=== PATIENT | male | born 1950 | race Asian ===

== ENCOUNTER 2021-05-11 19:04 | Emergency (ER) | payer SELFPAY ==
[~2021-05-11] VITALS: Ht 177.8 cm; Wt 74.5 kg
[2021-05-11] MEDS ORDERED: MUCI1TAB18 PO (19:17)
[2021-05-11] MEDS ORDERED: METF500T13 PO (20:20)
[2021-05-11] MEDS ORDERED: ISOS10TA3 PO (20:20)
[2021-05-11] MEDS ORDERED: ASPI325T57 PO (20:20)
[2021-05-11] MEDS ORDERED: ALLO100T PO (20:20)
[2021-05-11] MEDS ORDERED: BENZ200C70 PO (21:02)
[2021-05-11 21:29] VITALS: BP 125/64
== END 2021-05-11 21:36 | disposition home or self-care (01) ==
LOC: M ED 19:04
DX: J02.9 Acute pharyngitis, unspecified (principal); R05.9 Cough, unspecified; U07.1 COVID-19; E11.9 Type 2 diabetes mellitus without complications; E78.5 Hyperlipidemia, unspecified; Z79.899 Other long term (current) drug therapy; Z79.82 Long term (current) use of aspirin; Z79.84 Long term (current) use of oral hypoglycemic drugs

== ENCOUNTER 2025-01-23 19:28 | Emergency (ER) | payer MEDICAID, MEDICARE ==
[~2025-01-23] VITALS: Ht 172.7 cm; Wt 78.3 kg
[~2025-01-23 19:28] MED LIST: ALLO100T PO; ASPI325T57 PO; BENZ200C70 PO; ISOS10TA3 PO; METF500T13 PO; MUCI1TAB18 PO
[2025-01-23 20:39] LABS: KETONE, URINE AUTO RFX TRACE mg/dL (NEGATIVE); LEUKOCYTE ESTERASE UR AUTO RFX NEGATIVE (NEGATIVE); NITRITE, URINE AUTO RFX NEGATIVE (NEGATIVE); RBC, URINE AUTO RFX 17 /HPF (0-3); SQUAM EPITHELIAL CELL UR AURFX 0 /HPF (0-6); WBC, URINE AUTO RFX 0 /HPF (0-3)
[2025-01-23 20:56] LABS: BASO # 0.0 10^3/uL (0.0-0.2); BASO % 0.2 % (0.0-1.0); EOS # 0.0 10^3/uL (0.0-0.5); EOS % 0.2 % (0.0-3.0); LYMPH # 1.4 10^3/uL (1.5-5.0); LYMPH % 10.1 % (24.0-44.0); MONO # 1.3 10^3/uL (0.0-0.8); MONO % 9.6 % (2.0-8.0); NEUTROPHILS # 10.8 10^3/uL (1.5-8.5); NEUTROPHILS % 79.6 % (36.0-66.0); PLATELET COUNT, AUTOMATED 168 10^3/uL (150-450)
[2025-01-23 21:24] LABS: ALT/SGPT 499 U/L (7.0-40); AST/SGOT 283 U/L (<34); CALCIUM LEVEL 8.8 MG/DL (8.3-10.6); CARBON DIOXIDE LEVEL 25 MMOL/L (20-31); CHLORIDE LEVEL 104 MMOL/L (98-107); CREATININE FOR GFR 1.02 MG/DL (0.70-1.30); GLOMERULAR FILTRATION RATE 76.7 (>42); POTASSIUM SERUM 4.4 MMOL/L (3.5-5.1); SODIUM LEVEL 140 MMOL/L (136-145)
[2025-01-23] MEDS ORDERED: ISOVUE-370 76% 100 ML VIAL As Ordered ONE (23:08)
[2025-01-23] MEDS: ONDANSETRON 4MG 2ML VIAL IV ONE (23:09)
[2025-01-23] MEDS: NS (Normal Saline) 0.9% 1,000 ML IV ONE (23:09)
[2025-01-23 23:38] LABS: HEPATITIS C VIRUS ABY INDEX 0.02 INDEX (<0.8)
[2025-01-23 23:42] LABS: CPK CREATINE PHOSPHOKINASE 54 U/L (46-171)
[2025-01-24 01:26] LABS: C REACTIVE PROTEIN QUANTITATIV 9.14 MG/DL (<1.0)
[2025-01-24] MEDS: PIPERACILLIN/TAZOBACTAM SOD 3.375 GM in DEXTROSE 5% (D5W) ADV/MINI-BAG 50 ML IV SCH (01:58)
[2025-01-24 04:41] LABS: BASO # 0.0 10^3/uL (0.0-0.2); BASO % 0.2 % (0.0-1.0); EOS # 0.1 10^3/uL (0.0-0.5); EOS % 0.8 % (0.0-3.0); LYMPH # 1.2 10^3/uL (1.5-5.0); LYMPH % 11.9 % (24.0-44.0); MONO # 1.2 10^3/uL (0.0-0.8); MONO % 11.8 % (2.0-8.0); NEUTROPHILS # 7.5 10^3/uL (1.5-8.5); NEUTROPHILS % 75.0 % (36.0-66.0); PLATELET COUNT, AUTOMATED 146 10^3/uL (150-450)
[2025-01-24 05:13] LABS: ALT/SGPT 392.0 U/L (7.0-40); AST/SGOT 182.0 U/L (<34); CALCIUM LEVEL 8.2 MG/DL (8.3-10.6); CARBON DIOXIDE LEVEL 23.0 MMOL/L (20-31); CHLORIDE LEVEL 108.0 MMOL/L (98-107); CREATININE FOR GFR 0.9 MG/DL (0.70-1.30); GLOMERULAR FILTRATION RATE 89.1 (>42); POTASSIUM SERUM 4.1 MMOL/L (3.5-5.1); SODIUM LEVEL 143.0 MMOL/L (136-145)
[2025-01-24] MEDS ORDERED: DOCU100C16 PO (16:41)
[2025-01-24] MEDS ORDERED: ALLO300T2 PA (16:41)
[2025-01-24] MEDS ORDERED: [UNRECOGNIZED DRUG - OTHER] PO (16:43)
[2025-01-24] MEDS ORDERED: HOME MED LIST COMPLETE! XX SCH (16:45)
[2025-01-24] MEDS: NS (Normal Saline) 0.9% 1,000 ML IV SCH (18:17)
[2025-01-24 22:15] VITALS: BP 98/51; TEMP 97.5; O2SAT 93
== END 2025-01-24 21:57 | disposition short-term general hospital (02) ==
LOC: M ED 19:28
DX: K86.89 Other specified diseases of pancreas (principal); K80.51 Calculus of bile duct without cholangitis or cholecystitis with obstruction; R59.0 Localized enlarged lymph nodes; E11.9 Type 2 diabetes mellitus without complications; Z87.891 Personal history of nicotine dependence; Z79.82 Long term (current) use of aspirin; Z79.899 Other long term (current) drug therapy
CPT/HCPCS: 74176; 74177; 74181; 80048; 80074; 80076; 81001; 82550; 83605; 83690; 84145; 85025; 86140; 87040; 96374; 96375; 99285; J2405; J2543; Q9967